=== PATIENT | male | born 1995 | race American Indian/Alaskan Native ===

== ENCOUNTER 2016-11-16 12:12 | Emergency (ER) | payer SELFPAY ==
[2016-11-16 13:07] VITALS: BP 110/67
--- NOTE | 2016-11-16 18:08 | Emergency Department Report ---
[facility] Chief Complaint: Eye Problems Stated Complaint: PINK EYE Time Seen by Provider: 11/16/16 17:57 Severity: moderate Symptoms: Yes Eye Itching (left eye), Yes Eye Redness (left eye), Yes Purulent Drainage (left eye), Yes Blurred Vision (left eye), No Preceding URI, No H/O Allergic Rhinitis, No Contact Lens Use, No Trauma, No Fever, No Headache Other History: 1-year-old male comes in for complaint of left eye redness and itchiness and pain. Patient reports that he has yellow to orange discharge coming from the left thigh. He reports pain is off and on but not constant. ED Review of Systems ROS: Stated complaint: PINK EYE Other details as noted in HPI Constitutional: no symptoms reported ENT: as per HPI ED Past Medical Hx - Past Medical History Hx Asthma: Yes Additional medical history: Back Problems - Surgical History Past Surgical History?: No - Social History Smoking Status: Current Every Day Smoker Substance Use Type: Alcohol - Medications Home Medications: Home Medications Medication Instructions Recorded Confirmed Last Taken Type Acetaminophen/Codeine [Tylenol #3] 1 tab PO Q6H PRN #15 tab 04/12/16 Unknown Rx Amoxicillin [Amoxicillin TAB] 875 mg PO BID #20 tablet 04/12/16 Unknown Rx Ibuprofen [Motrin 800 MG tab] 800 mg PO Q8HR PRN #21 tablet 04/12/16 Unknown Rx Promethazine [Phenergan TAB] 25 mg PO Q6HR PRN #12 tab 04/12/16 Unknown Rx predniSONE [Deltasone] 40 mg PO DAILY #10 tablet 04/12/16 Unknown Rx Erythromycin [Erythromycin Ophth 1 strip OS QID #01 tube 11/16/16 Unknown Rx Oint] [facility] Exam - Exam General: Vital signs noted. No distress. Alert and acting appropriately. Eye Exam: Left Injection, Left EOMI, Left Purulent Discharge HEENT: No Nasal Congestion, No Pharyngeal Erythema Lungs: Yes Clear Lung Sounds ED Course Vital Signs 11/16/16 13:05 Temperature 98.2 F Pulse Rate 70 Respiratory 20 Rate Blood Pressure 110/67 O2 Sat by Pulse 100 Oximetry Critical care attestation.: If time is entered above; I have spent that time in minutes in the direct care of this critically ill patient, excluding procedure time. ED Disposition Clinical Impression: Acute allergic conjunctivitis of left eye Disposition: DISCHARGED TO HOME OR SELFCARE Is pt being admited?: No Does the pt Need Aspirin: No Condition: Stable Instructions: Conjunctivitis (ED) Additional Instructions: Use the antibiotic in your eye for 10 days. Wash her hands prior to touching her eye and after you touch her eye. Prescriptions: Erythromycin [Erythromycin Ophth Oint] 1 strip OS QID #01 tube Referrals: PRIMARY CARE, [Primary Care Provider] - 3-5 Days FREEMAN RICHARDSON MD [Staff Physician] - 3-5 Days Forms: Work/School Release Form(ED)
== END 2016-11-16 18:35 | disposition home or self-care (01) ==
LOC: ED 12:12
DX: H10.12 Acute atopic conjunctivitis, left eye (principal); J45.909 Unspecified asthma, uncomplicated; F17.200 Nicotine dependence, unspecified, uncomplicated
CPT/HCPCS: 99282

== ENCOUNTER 2016-11-18 17:19 | Emergency (ER) | payer SELFPAY ==
[2016-11-18 18:14] VITALS: BP 114/73
== END 2016-11-18 21:50 | disposition left against medical advice (07) ==
LOC: ED 17:19
DX: H57.8 Other specified disorders of eye and adnexa (principal); Z53.21 Procedure and treatment not carried out due to patient leaving prior to being seen by health care provider

== ENCOUNTER 2017-05-27 06:42 | Inpatient (IN) | payer OTHER ==
[2017-05-27 07:15] LABS: Basophils % (Auto) 0.2 % (0.0-1.8); Eosinophils % (Auto) 0.2 % (0.0-4.3); Mean Corpuscular HGB Conc 33 % (32-34); Mean Corpuscular Hemoglobin 32 pg (28-32); Mean Corpuscular Volume 97 fl (84-94); Platelet Count 418 K/mm3 (140-440); Red Blood Count 4.65 M/mm3 (3.65-5.03); Red Cell Distribution Width 13.4 % (13.2-15.2); White Blood Count 14.5 K/mm3 (4.5-11.0)
[2017-05-27 07:39] LABS: Alanine Aminotransferase 15 units/L (7-56); Albumin 4.9 g/dL (3.9-5); Albumin/Globulin Ratio 1.4 %; Alkaline Phosphatase 102 units/L (35-129); Anion Gap 21 mmol/L; BUN/Creatinine Ratio 11.11; Blood Urea Nitrogen 10 mg/dL (9-20); Calcium 9.5 mg/dL (8.4-10.2); Carbon Dioxide 27 mmol/L (22-30); Glucose 141 mg/dL (75-100); Lipase 13 units/L (13-60); Potassium 3.6 mmol/L (3.6-5.0); Sodium 143 mmol/L (137-145); Total Protein 8.4 g/dL (6.3-8.2)
[2017-05-27 08:12] LABS: Bilirubin,Urine NEG (Negative); Blood,Urine NEG (Negative); Ketones,Urine NEG (Negative); Leukocyte Esterase,Urine NEG (Negative); Mucus,Urine 3+ /HPF; Nitrite,Urine NEG (Negative)
[2017-05-27] MEDS ORDERED: ZOFRAN IV ONE (09:36)
[2017-05-27] MEDS ORDERED: DILAUDID IV ONE ×2 (09:36→12:59)
[2017-05-27] MEDS ORDERED: NACL 0.9% 1000 ML 1,000 ML IV ONE (09:36)
--- NOTE | 2017-05-27 09:36 | Emergency Department Report ---
ED Abdominal Pain HPI - General Chief Complaint: Abdominal Pain Stated Complaint: ETOH Time Seen by Provider: 05/27/17 09:33 Source: patient Mode of arrival: Ambulatory Limitations: No Limitations - History of Present Illness Initial Comments: Patient complains of diffuse abdominal pain. He states that he does drink alcohol at triage but denied that to me when I asked him. He denies vomiting or nausea. He describes the abdominal pain is really quite diffuse and constant. He's had no fever or chills. He states he hasn't had any similar such episode. MD Complaint: abdominal pain -: Gradual Location: diffuse Radiation: none Migration to: no migration Severity: moderate, severe Quality: aching Consistency: constant Improves With: nothing Worsens With: nothing Context: other (question alcohol last night) Associated Symptoms: denies other symptoms - Related Data Previous Rx's Medication Instructions Recorded Last Taken Type Acetaminophen/Codeine [Tylenol #3] 1 tab PO Q6H PRN #15 tab 04/12/16 Unknown Rx Amoxicillin [Amoxicillin TAB] 875 mg PO BID #20 tablet 04/12/16 Unknown Rx Ibuprofen [Motrin 800 MG tab] 800 mg PO Q8HR PRN #21 tablet 04/12/16 Unknown Rx Promethazine [Phenergan TAB] 25 mg PO Q6HR PRN #12 tab 04/12/16 Unknown Rx predniSONE [Deltasone] 40 mg PO DAILY #10 tablet 04/12/16 Unknown Rx Erythromycin [Erythromycin Ophth 1 strip OS QID #01 tube 11/16/16 Unknown Rx Oint] Ciprofloxacin HCl [Ciprofloxacin 500 mg PO Q12HR #14 tab 05/27/17 Unknown Rx TAB] traMADol [Ultram] 50 mg PO Q6HR PRN #7 tablet 05/27/17 Unknown Rx Allergies Allergy/AdvReac Type Severity Reaction Status Date / Time shellfish derived Allergy Anaphylaxis Verified 10/18/15 17:32 ED Review of Systems ROS: Stated complaint: ETOH Other details as noted in HPI Constitutional: denies: chills, fever Eyes: denies: eye pain, eye discharge, vision change ENT: denies: ear pain, throat pain Respiratory: denies: cough, shortness of breath, wheezing Cardiovascular: denies: chest pain, palpitations Endocrine: no symptoms reported Gastrointestinal: abdominal pain. denies: nausea, diarrhea Genitourinary: denies: urgency, dysuria Musculoskeletal: denies: back pain, joint swelling, arthralgia Skin: denies: rash, lesions Neurological: denies: headache, weakness, paresthesias Psychiatric: denies: anxiety, depression Hematological/Lymphatic: denies: easy bleeding, easy bruising ED Past Medical Hx - Past Medical History Previous Medical History?: Yes Hx Asthma: Yes Additional medical history: Back Problems - Surgical History Past Surgical History?: No - Social History Smoking Status: Current Every Day Smoker Substance Use Type: Alcohol - Medications Home Medications: Home Medications Medication Instructions Recorded Confirmed Last Taken Type Acetaminophen/Codeine [Tylenol #3] 1 tab PO Q6H PRN #15 tab 04/12/16 Unknown Rx Amoxicillin [Amoxicillin TAB] 875 mg PO BID #20 tablet 04/12/16 Unknown Rx Ibuprofen [Motrin 800 MG tab] 800 mg PO Q8HR PRN #21 tablet 04/12/16 Unknown Rx Promethazine [Phenergan TAB] 25 mg PO Q6HR PRN #12 tab 04/12/16 Unknown Rx predniSONE [Deltasone] 40 mg PO DAILY #10 tablet 04/12/16 Unknown Rx Erythromycin [Erythromycin Ophth 1 strip OS QID #01 tube 11/16/16 Unknown Rx Oint] Ciprofloxacin HCl [Ciprofloxacin 500 mg PO Q12HR #14 tab 05/27/17 Unknown Rx TAB] traMADol [Ultram] 50 mg PO Q6HR PRN #7 tablet 05/27/17 Unknown Rx ED Physical Exam - General Limitations: No Limitations General appearance: alert, anxious - Head Head exam: Present: atraumatic, normocephalic - Eye Eye exam: Present: normal appearance - ENT ENT exam: Present: mucous membranes moist - Neck Neck exam: Present: normal inspection. Absent: tenderness, meningismus - Respiratory Respiratory exam: Present: normal lung sounds bilaterally. Absent: respiratory distress - Cardiovascular Cardiovascular Exam: Present: regular rate, normal rhythm. Absent: systolic murmur, diastolic murmur, rubs, gallop - GI/Abdominal GI/Abdominal exam: Present: soft, normal bowel sounds. Absent: distended, tenderness (no focal tenderness found), guarding, rebound, rigid - Rectal Rectal exam: Present: deferred - Extremities Exam Extremities exam: Present: normal inspection - Back Exam Back exam: Present: normal inspection - Neurological Exam Neurological exam: Present: alert, oriented X3, CN II-XII intact. Absent: motor sensory deficit - Psychiatric Psychiatric exam: Present: normal affect, normal mood - Skin Skin exam: Present: warm, dry, intact, normal color. Absent: rash ED Course Vital Signs 05/27/17 05/27/17 05/27/17 06:51 11:56 12:25 Temperature 98.4 F 98.7 F Pulse Rate 67 67 Respiratory 22 16 Rate Blood Pressure 128/83 Blood Pressure 126/82 [Right] O2 Sat by Pulse 100 Oximetry - Reevaluation(s) Reevaluation #1: Patient was bit writhing when he arrived. He was given Zosyn for coverage for possible intra-abdominal infection. He was given analgesia and antiemetics. On reexamination he states his abdominal pain is totally resolved. His abdomen was completely benign soft and nontender. He was informed as to the results of his CT examination showing diverticulosis. Radiologist saw no diverticulitis. Not withstanding this he does have a bit of a white blood cell count elevation and will be placed on Cipro and given analgesia. He is given strict return instructions and referred to a GI doctor and primary care setting. 05/27/17 12:29 ED Medical Decision Making - Lab Data Result diagrams: 05/27/17 07:04 05/27/17 07:04 Laboratory Results - last 24 hr 05/27/17 05/27/17 05/27/17 07:04 07:04 07:31 WBC 14.5 H RBC 4.65 Hgb 15.0 Hct 45.0 MCV 97 H MCH 32 MCHC 33 RDW 13.4 Plt Count 418 Lymph % (Auto) 9.7 L [place] % (Auto) 4.8 Eos % (Auto) 0.2 Baso % (Auto) 0.2 Lymph # 1.4 [place] # 0.7 Eos # 0.0 Baso # 0.0 Seg Neutrophils % 85.1 H Seg Neutrophils # 12.3 H Sodium 143 Potassium 3.6 Chloride 99.0 Carbon Dioxide 27 Anion Gap 21 BUN 10 Creatinine 0.9 Estimated GFR > 60 BUN/Creatinine Ratio 11.11 Glucose 141 H Calcium 9.5 Total Bilirubin 0.60 AST 20 ALT 15 Alkaline Phosphatase 102 Total Protein 8.4 H Albumin 4.9 Albumin/Globulin Ratio 1.4 Lipase 13 Urine Color Yellow Urine Turbidity Clear Urine pH 7.0 Ur Specific [place] 1.027 Urine Protein 30 mg/dl Urine Glucose (UA) Neg Urine Ketones Neg Urine Blood Neg Urine Nitrite Neg Urine Bilirubin Neg Urine Urobilinogen 2.0 Ur Leukocyte Esterase Neg Urine WBC (Auto) 2.0 Urine RBC (Auto) 7.0 U Epithel Cells (Auto) 1.0 Urine Mucus 3+ Laboratory Results - last 24 hr 05/27/17 05/27/17 05/27/17 07:04 07:04 07:04 WBC 14.5 H RBC 4.65 Hgb 15.0 Hct 45.0 MCV 97 H MCH 32 MCHC 33 RDW 13.4 Plt Count 418 Lymph % (Auto) 9.7 L [place] % (Auto) 4.8 Eos % (Auto) 0.2 Baso % (Auto) 0.2 Lymph # 1.4 [place] # 0.7 Eos # 0.0 Baso # 0.0 Seg Neutrophils % 85.1 H Seg Neutrophils # 12.3 H Sodium 143 Potassium 3.6 Chloride 99.0 Carbon Dioxide 27 Anion Gap 21 BUN 10 Creatinine 0.9 Estimated GFR > 60 BUN/Creatinine Ratio 11.11 Glucose 141 H Calcium 9.5 Total Bilirubin 0.60 AST 20 ALT 15 Alkaline Phosphatase 102 Total Protein 8.4 H Albumin 4.9 Albumin/Globulin Ratio 1.4 Lipase 13 Urine Color Urine Turbidity Urine pH Ur Specific [place] Urine Protein Urine Glucose (UA) Urine Ketones Urine Blood Urine Nitrite Urine Bilirubin Urine Urobilinogen Ur Leukocyte Esterase Urine WBC (Auto) Urine RBC (Auto) U Epithel Cells (Auto) Urine Mucus Urine Opiates Screen Urine Methadone Screen Ur Barbiturates Screen Ur Phencyclidine Scrn Ur Amphetamines Screen U Benzodiazepines Scrn Urine Cocaine Screen U Marijuana (THC) Screen Drugs of Abuse Note Plasma/Serum Alcohol < 0.01 05/27/17 05/27/17 07:31 07:31 WBC RBC Hgb Hct MCV MCH MCHC RDW Plt Count Lymph % (Auto) [place] % (Auto) Eos % (Auto) Baso % (Auto) Lymph # [place] # Eos # Baso # Seg Neutrophils % Seg Neutrophils # Sodium Potassium Chloride Carbon Dioxide Anion Gap BUN Creatinine Estimated GFR BUN/Creatinine Ratio Glucose Calcium Total Bilirubin AST ALT Alkaline Phosphatase Total Protein Albumin Albumin/Globulin Ratio Lipase Urine Color Yellow Urine Turbidity Clear Urine pH 7.0 Ur Specific [place] 1.027 Urine Protein 30 mg/dl Urine Glucose (UA) Neg Urine Ketones Neg Urine Blood Neg Urine Nitrite Neg Urine Bilirubin Neg Urine Urobilinogen 2.0 Ur Leukocyte Esterase Neg Urine WBC (Auto) 2.0 Urine RBC (Auto) 7.0 U Epithel Cells (Auto) 1.0 Urine Mucus 3+ Urine Opiates Screen Presumptive negative Urine Methadone Screen Presumptive negative Ur Barbiturates Screen Presumptive negative Ur Phencyclidine Scrn Presumptive negative Ur Amphetamines Screen Presumptive negative U Benzodiazepines Scrn Presumptive negative Urine Cocaine Screen Presumptive negative U Marijuana (THC) Screen Presumptive positive Drugs of Abuse Note Disclamer Plasma/Serum Alcohol - Radiology Data Radiology results: report reviewed (sigmoid diverticulosis is present without signs of inflammation) Critical care attestation.: If time is entered above; I have spent that time in minutes in the direct care of this critically ill patient, excluding procedure time. ED Disposition Clinical Impression: Sigmoid diverticulosis Abdominal pain Qualifiers: Abdominal location: generalized Qualified Code(s): R10.84 - Generalized abdominal pain Disposition: - TO HOME OR SELFCARE Is pt being admited?: No Does the pt Need Aspirin: No Condition: Stable Instructions: Diverticulosis (ED), Acute Abdominal Pain (ED) Additional Instructions: Return any recurrent significant abdominal pain. Clear fluids and advance as tolerated. Return any fever nausea vomiting. Follow-up with GI doctor. Dietary restrictions are recommended for people with diverticulosis see instructions. Prescriptions: Ciprofloxacin HCl [Ciprofloxacin TAB] 500 mg PO Q12HR #14 tab traMADol [Ultram] 50 mg PO Q6HR PRN #7 tablet PRN Reason: Pain Referrals: PRIMARY CARE [Primary Care Provider] - 3-5 Days [facility] [Provider Group] - 3-5 Days [facility] [Provider Group] - 2-3 Days Time of Disposition: 12:32
[2017-05-27] MEDS ORDERED: BENADRYL IV ONE (09:37)
[2017-05-27] MEDS ORDERED: ZOSYN/NS 4.5GM/100ML 4.5 GM/100 ML VIAL IV ONE (09:39)
[2017-05-27 09:54] LABS: Urine Drugs of Abuse Note Disclamer
--- NOTE | 2017-05-27 10:35 | Cat Scan Report ---
CT scan of abdomen and pelvis with IV contrast: History: Generalized abdominal pain. Findings: Normal lung bases. No pleural pericardial effusion. Normal liver spleen pancreas and gallbladder. Normal adrenals kidney parenchyma and bladder. No free intraperitoneal fluid or air. No evidence of adenopathy. Normal aorta. Normal appendix. No evidence of diverticulitis. Scattered diverticula in sigmoid. Impression: Diverticulosis sigmoid colon. Gaseous colon with stool in colon
--- NOTE | 2017-05-27 15:24 | History and Physical Report ---
History of Present Illness Date of examination: 05/27/17 Date of admission: 05/27/17 Chief complaint: LLQ pain 2 days History of present illness: [facility]: 21 y/o AAM comes in for LLQ pain of 2 days.Associated with Nausea.No Vomiting or BRBPBR.No SOB.No fever or chills.Pain localized to LLQ and about 8/ 10 - Past Medical History Previous Medical History?: Yes Hx Asthma: Yes Additional medical history: Back Problems - Surgical History Past Surgical History?: No - Social History Smoking Status: Current Every Day Smoker Substance Use Type: Alcohol - Medications Home Medications: Home Medications Medication Instructions Recorded Confirmed Last Taken Type Acetaminophen/Codeine [Tylenol #3] 1 tab PO Q6H PRN #15 tab 04/12/16 Unknown Rx Amoxicillin [Amoxicillin TAB] 875 mg PO BID #20 tablet 04/12/16 Unknown Rx Ibuprofen [Motrin 800 MG tab] 800 mg PO Q8HR PRN #21 tablet 04/12/16 Unknown Rx Promethazine [Phenergan TAB] 25 mg PO Q6HR PRN #12 tab 04/12/16 Unknown Rx predniSONE [Deltasone] 40 mg PO DAILY #10 tablet 04/12/16 Unknown Rx Erythromycin [Erythromycin Ophth 1 strip OS QID #01 tube 11/16/16 Unknown Rx Oint] Ciprofloxacin HCl [Ciprofloxacin 500 mg PO Q12HR #14 tab 05/27/17 Unknown Rx TAB] traMADol [Ultram] 50 mg PO Q6HR PRN #7 tablet 05/27/17 Unknown Rx Review of Systems Constitutional: denies: chills, fever Eyes: denies: eye pain, eye discharge, vision change ENT: denies: ear pain, throat pain Respiratory: denies: cough, shortness of breath, wheezing Cardiovascular: denies: chest pain, palpitations Endocrine: no symptoms reported Gastrointestinal: LLQ abdominal pain. denies: nausea, diarrhea Genitourinary: denies: urgency, dysuria Musculoskeletal: denies: back pain, joint swelling, arthralgia Skin: denies: rash, lesions Neurological: denies: headache, weakness, paresthesias Psychiatric: denies: anxiety, depression Hematological/Lymphatic: denies: easy bleeding, easy bruising Past History Past Medical History: No medical history Medications and Allergies Allergies Allergy/AdvReac Type Severity Reaction Status Date / Time shellfish derived Allergy Anaphylaxis Verified 12/04/15 17:32 Home Medications Medication Instructions Recorded Confirmed Last Taken Type Ciprofloxacin HCl [Ciprofloxacin 500 mg PO Q12HR #14 tab 05/27/17 Unknown Rx TAB] traMADol [Ultram] 50 mg PO Q6HR PRN #7 tablet 05/27/17 Unknown Rx Review of Systems All systems: negative Exam - Physical Exam Narrative exam: IN discomfort - Constitutional Vitals: Temp Pulse Resp BP Pulse Ox 98.7 F 67 16 126/82 100 05/27/17 12:25 05/27/17 11:56 05/27/17 11:56 05/27/17 11:56 05/27/17 06:51 General appearance: Present: no acute distress, well-nourished - EENT Eyes: Present: PERRL ENT: hearing intact, clear oral mucosa - Neck Neck: Present: supple, normal ROM - Respiratory Respiratory effort: normal Respiratory: bilateral: CTA - Cardiovascular Heart rate: 76 Rhythm: regular Heart Sounds: Present: S1 & S2. Absent: rub, click - Extremities Extremities: pulses symmetrical, No edema Peripheral Pulses: within normal limits - Abdominal General gastrointestinal: Present: tender (LLQ associated with some guarding), non-distended, normal bowel sounds Male genitourinary: Present: normal - Integumentary Integumentary: Present: clear, warm, dry - Musculoskeletal Musculoskeletal: gait normal, strength equal bilaterally - Psychiatric Psychiatric: appropriate mood/affect, intact judgment & insight - Neurologic Neurologic: CNII-XII intact, moves all extremities Results - Labs CBC & Chem 7: 05/27/17 07:04 05/27/17 07:04 Labs: Laboratory Last Values WBC 14.5 K/mm3 (4.5-11.0) H 05/27/17 07:04 RBC 4.65 M/mm3 (3.65-5.03) 05/27/17 07:04 Hgb 15.0 gm/dl (11.8-15.2) 05/27/17 07:04 Hct 45.0 % (35.5-45.6) 05/27/17 07:04 MCV 97 fl (84-94) H 05/27/17 07:04 MCH 32 pg (28-32) 05/27/17 07:04 MCHC 33 % (32-34) 05/27/17 07:04 RDW 13.4 % (13.2-15.2) 05/27/17 07:04 Plt Count 418 K/mm3 (140-440) 05/27/17 07:04 Lymph % (Auto) 9.7 % (13.4-35.0) L 05/27/17 07:04 [place] % (Auto) 4.8 % (0.0-7.3) 05/27/17 07:04 Eos % (Auto) 0.2 % (0.0-4.3) 05/27/17 07:04 Baso % (Auto) 0.2 % (0.0-1.8) 05/27/17 07:04 Lymph # 1.4 K/mm3 (1.2-5.4) 05/27/17 07:04 [place] # 0.7 K/mm3 (0.0-0.8) 05/27/17 07:04 Eos # 0.0 K/mm3 (0.0-0.4) 05/27/17 07:04 Baso # 0.0 K/mm3 (0.0-0.1) 05/27/17 07:04 Seg Neutrophils % 85.1 % (40.0-70.0) H 05/27/17 07:04 Seg Neutrophils # 12.3 K/mm3 (1.8-7.7) H 05/27/17 07:04 Sodium 143 mmol/L (137-145) 05/27/17 07:04 Potassium 3.6 mmol/L (3.6-5.0) 05/27/17 07:04 Chloride 99.0 mmol/L (98-107) 05/27/17 07:04 Carbon Dioxide 27 mmol/L (22-30) 05/27/17 07:04 Anion Gap 21 mmol/L 05/27/17 07:04 BUN 10 mg/dL (9-20) 05/27/17 07:04 Creatinine 0.9 mg/dL (0.8-1.5) 05/27/17 07:04 Estimated GFR > 60 ml/min 05/27/17 07:04 BUN/Creatinine Ratio 11.11 % 05/27/17 07:04 Glucose 141 mg/dL (75-100) H 05/27/17 07:04 Calcium 9.5 mg/dL (8.4-10.2) 05/27/17 07:04 Total Bilirubin 0.60 mg/dL (0.1-1.2) 05/27/17 07:04 AST 20 units/L (5-40) 05/27/17 07:04 ALT 15 units/L (7-56) 05/27/17 07:04 Alkaline Phosphatase 102 units/L (35-129) 05/27/17 07:04 Total Protein 8.4 g/dL (6.3-8.2) H 05/27/17 07:04 Albumin 4.9 g/dL (3.9-5) 05/27/17 07:04 Albumin/Globulin Ratio 1.4 % 05/27/17 07:04 Lipase 13 units/L (13-60) 05/27/17 07:04 Urine Color Yellow (Yellow) 05/27/17 07:31 Urine Turbidity Clear (Clear) 05/27/17 07:31 Urine pH 7.0 (5.0-7.0) 05/27/17 07:31 Ur Specific [place] 1.027 (1.003-1.030) 05/27/17 07:31 Urine Protein 30 mg/dl mg/dL (Negative) 05/27/17 07:31 Urine Glucose (UA) Neg mg/dL (Negative) 05/27/17 07:31 Urine Ketones Neg mg/dL (Negative) 05/27/17 07:31 Urine Blood Neg (Negative) 05/27/17 07:31 Urine Nitrite Neg (Negative) 05/27/17 07:31 Urine Bilirubin Neg (Negative) 05/27/17 07:31 Urine Urobilinogen 2.0 mg/dL (<2.0) 05/27/17 07:31 Ur Leukocyte Esterase Neg (Negative) 05/27/17 07:31 Urine WBC (Auto) 2.0 /HPF (0.0-6.0) 05/27/17 07:31 Urine RBC (Auto) 7.0 /HPF (0.0-6.0) 05/27/17 07:31 U Epithel Cells (Auto) 1.0 /HPF (0-13.0) 05/27/17 07:31 Urine Mucus 3+ /HPF 05/27/17 07:31 Urine Opiates Screen Presumptive negative 05/27/17 07:31 Urine Methadone Screen Presumptive negative 05/27/17 07:31 Ur Barbiturates Screen Presumptive negative 05/27/17 07:31 Ur Phencyclidine Scrn Presumptive negative 05/27/17 07:31 Ur Amphetamines Screen Presumptive negative 05/27/17 07:31 U Benzodiazepines Scrn Presumptive negative 05/27/17 07:31 Urine Cocaine Screen Presumptive negative 05/27/17 07:31 U Marijuana (THC) Screen Presumptive positive 05/27/17 07:31 Drugs of Abuse Note Disclamer 05/27/17 07:31 Plasma/Serum Alcohol < 0.01 gm% (0-0.07) 05/27/17 07:04 - Imaging and Cardiology CT scan - abdomen: report reviewed (Sigmoid diverticula.No Diverticulitis mentioned) Assessment and Plan Advance Directives: Yes VTE prophylaxis?: Chemical Plan of care discussed with patient/family: Yes - Patient Problems (1) Acute diverticulitis Current Visit: Yes Status: Acute Plan to address problem: Patient started on Zosyn for broad spectrum coverage.Also pain control.GI consult if necessary (2) DVT prophylaxis Current Visit: Yes Status: Acute Plan to address problem: on lovenox
[2017-05-27] MEDS ORDERED: DULCOLAX PR PRN (15:25)
[2017-05-27] MEDS ORDERED: TYLENOL PO PRN (15:25)
[2017-05-27] MEDS ORDERED: ZOFRAN IV PRN (15:25)
[2017-05-27] MEDS ORDERED: MILK OF MAGNESIA PO PRN (15:25)
--- NOTE | 2017-05-27 15:33 | Admit Criteria Form ---
Admission Criteria Documentation: ABDOMINAL PAIN Clinical Indications for Admission to Inpatient Care (Place 'X' for any and all applicable criteria): Admission is indicated for ANY ONE of the following(1)(2)(3)(4)(5): [ X]I. Inpatient admission required rather than observation care (Also use Abdominal Pain: Observation Care, as appropriate) because of ANY ONE of the following: [ ]a) Severe pain requiring acute inpatient management [ ]b) Identification of etiology/finding that requires inpatient care (eg, aortic dissection, free air) [ ]c) Absent bowel sounds with complete ileus(6) [ ]d) Suspected toxic megacolon [ ]e) Severe electrolyte abnormalities requiring inpatient care [ ]f) High fever or infection requiring inpatient admission as indicated by ANY ONE of following(7)(8): [ ] i) Appropriate outpatient or observational care antimicrobial treatment unavailable, not effective, or not feasible [ ] ii) Documented bacteremia [ ] iii) Temperature > 104.9 degrees F (oral) [ ] iv) T >103.1 F (oral) or < 96.8 F(rectal) that does not respond to all emergency treatment measures [ ]g) Signs of intestinal obstruction [B] [ ]h) Hemodynamic instability [ ]i) IV fluid to replace significant ongoing losses (greater than 3 L/m2 per day) (12)(13) [ ]j) Percutaneous or open drainage (eg, abscess, biliary tract ) procedures [ ]k) Parenteral nutrition regimen that must be implemented on inpatient basis [ X]l) Other condition,treatment or monitoring requiring inpatient admission. [ ]II. Peritoneal signs present [ ]III. Surgery needed that cannot be performed on an ambulatory basis. [ ]IV. Evaluation requires patient to not eat or drink for extended period ( eg, more than 24 hours). [ ]V. Contraindications and/or Inappropriate clinical situations for Observational Care in patients with abdominal pain, when ANY ONE of the following is required: [ ]a) Thorough evaluation is required to prevent catastrophic events due to delays in diagnosing (e.g.Mesenteric ischemia) 1,3 [ ]b) Patient with severe pathology or with chronic symptoms unlikely to improve in the ED stay (3) [ ]. General contraindications and/or Inappropriate clinical situations for Observational Care in patients with abdominal pain, when ANY ONE of the following is required: [ ]a) Prediction of prolongation of LOS based on ANY ONE of the following may be considered as a contraindication for observational care 2, 3, 4, 5, 6, 7, 8, 9, 10, 11 [ ]i) Age > 65 yrs. [ ]ii) Patient arriving by ambulance [ ]iii) Patient with high acuity [ ]iv) Patient requiring vital sign monitoring [ ]v) Patient on IV medication [ ]b) Systolic blood pressures 180mmHg 3,12 [ ]c) Patient with altered mental status including delirium and other alteration of consciousness, (3) [ ]d) Patient whose discharge disposition will be to a correction home or rehabilitation home should not be managed in Emergency Department Observation Unit. CMS rule requires 3 days hospital stay before such placement.3,13 [ ]e) Patient with failure to thrive due to broad array of etiologies 3,16,17 [ ]f) Inability to ambulate 3,14 Extended stay beyond goal length of stay may be needed for(2)(3): [ ]a) Persistent abdominal pain with suspected intra-abdominal process [ ]b) Diagnosed condition requiring continued stay (e.g., pancreatitis, complicated diverticulitis) [ ]c) Surgery (e.g., colectomy) The original [facility] content created by [employer] has been revised. The portions of the content which have been revised are identified through the use of italic text or in bold, and [facility] has neither reviewed nor approved the modified material.All other unmodified content is copyright [facility] Please see references footnoted in the original [facility] edition 2016 Admission Criteria Met: Yes
[2017-05-27] MEDS: ZOSYN/NS 4.5GM/100ML 4.5 GM/100 ML VIAL IV SCH ×2 (15:40→21:24)
[2017-05-27] MEDS: D5NS 1,000 ML IV SCH (17:26)
[2017-05-27] MEDS: DILAUDID IV PRN (22:24)
[2017-05-28] MEDS: D5NS 1,000 ML IV SCH ×3 (05:02→23:41)
[2017-05-28] MEDS: ZOSYN/NS 4.5GM/100ML 4.5 GM/100 ML VIAL IV SCH ×3 (06:13→22:00)
[2017-05-28 07:30] LABS: Basophils % (Auto) 0.6 % (0.0-1.8); Eosinophils % (Auto) 1.9 % (0.0-4.3); Hematocrit 40.8 % (35.5-45.6); Hemoglobin 13.5 gm/dl (11.8-15.2); Mean Corpuscular HGB Conc 33 % (32-34); Mean Corpuscular Hemoglobin 32 pg (28-32); Mean Corpuscular Volume 96 fl (84-94); Platelet Count 331 K/mm3 (140-440); Red Blood Count 4.24 M/mm3 (3.65-5.03); Red Cell Distribution Width 13.1 % (13.2-15.2); White Blood Count 11.8 K/mm3 (4.5-11.0)
[2017-05-28 07:45] LABS: Alanine Aminotransferase 11 units/L (7-56); Albumin/Globulin Ratio 1.4 %; Alkaline Phosphatase 84 units/L (35-129); Anion Gap 16 mmol/L; Blood Urea Nitrogen 11 mg/dL (9-20); Calcium 9.1 mg/dL (8.4-10.2); Carbon Dioxide 27 mmol/L (22-30); Glucose 88 mg/dL (75-100); Potassium 3.2 mmol/L (3.6-5.0); Sodium 140 mmol/L (137-145); Total Protein 6.9 g/dL (6.3-8.2)
[2017-05-28] MEDS ORDERED: K-DUR PO ONE (08:30)
--- NOTE | 2017-05-28 18:48 | Progress Note ---
Assessment and Plan Assessment and plan: --Acute diverticulosis with intractable nausea vomiting and abdominal pain CT negative for diverticulitis however patient has lower abdominal tenderness and leukocytosis Continue antibiotics for 5-7 days Patient is nothing by mouth status on IV fluids, antibiotics and supportive care is Start clear liquids and advance as tolerated --Leukocytosis; secondary to acute diverticulosis, trending down --Hypokalemia; replenish per protocol and monitor levels --Intractable nausea and vomiting; Antiemetics, IV fluids, supportive care --Ongoing tobacco use; Counseling done patient strongly advised to quit tobacco use Advised nicotine patch --Alcohol abuse Counseling done patient strongly advised to quit alcohol intake, closely monitor for any withdrawal symptoms --DVT prophylaxis with Lovenox Closely monitor the patient and adjust management as needed Possible discharge tomorrow if stable History Interval history: Patient seen and evaluated, medical records reviewed No new events reported by the nursing staff Admitted with diverticulosis/abdominal pain/intractable nausea vomiting On IV fluids and IV antibiotics Patient feels slightly better anxious to eat, no new complaints alert awake oriented 3 not in acute distress Hospitalist Physical - Constitutional Vitals: Temp Pulse Resp BP Pulse Ox 98.8 F 58 L 18 108/58 100 05/28/17 15:47 05/28/17 15:47 05/28/17 15:47 05/28/17 15:47 05/28/17 08:00 General appearance: Present: no acute distress, well-nourished - EENT Eyes: Present: PERRL, EOM intact - Neck Neck: Present: supple, normal ROM - Respiratory Respiratory effort: normal Respiratory: negative: rales, rhonchi, wheezing - Cardiovascular Rhythm: regular Heart Sounds: Present: S1 & S2 - Extremities Extremities: no ischemia, No edema Peripheral Pulses: within normal limits - Abdominal General gastrointestinal: soft, non-tender, non-distended, normal bowel sounds - Integumentary Integumentary: Present: clear, warm - Psychiatric Psychiatric: appropriate mood/affect, cooperative - Neurologic Neurologic: CNII-XII intact, moves all extremities Results - Labs CBC & Chem 7: 05/28/17 06:38 05/28/17 06:38 Labs: Laboratory Last Values WBC 11.8 K/mm3 (4.5-11.0) H 05/28/17 06:38 RBC 4.24 M/mm3 (3.65-5.03) 05/28/17 06:38 Hgb 13.5 gm/dl (11.8-15.2) 05/28/17 06:38 Hct 40.8 % (35.5-45.6) 05/28/17 06:38 MCV 96 fl (84-94) H 05/28/17 06:38 MCH 32 pg (28-32) 05/28/17 06:38 MCHC 33 % (32-34) 05/28/17 06:38 RDW 13.1 % (13.2-15.2) L 05/28/17 06:38 Plt Count 331 K/mm3 (140-440) 05/28/17 06:38 Lymph % (Auto) 22.7 % (13.4-35.0) 05/28/17 06:38 Brown % (Auto) 9.9 % (0.0-7.3) H 05/28/17 06:38 Eos % (Auto) 1.9 % (0.0-4.3) 05/28/17 06:38 Baso % (Auto) 0.6 % (0.0-1.8) 05/28/17 06:38 Lymph # 2.7 K/mm3 (1.2-5.4) 05/28/17 06:38 Brown # 1.2 K/mm3 (0.0-0.8) H 05/28/17 06:38 Eos # 0.2 K/mm3 (0.0-0.4) 05/28/17 06:38 Baso # 0.1 K/mm3 (0.0-0.1) 05/28/17 06:38 Seg Neutrophils % 64.9 % (40.0-70.0) 05/28/17 06:38 Seg Neutrophils # 7.7 K/mm3 (1.8-7.7) 05/28/17 06:38 Sodium 140 mmol/L (137-145) 05/28/17 06:38 Potassium 3.2 mmol/L (3.6-5.0) L 05/28/17 06:38 Chloride 100.0 mmol/L (98-107) 05/28/17 06:38 Carbon Dioxide 27 mmol/L (22-30) 05/28/17 06:38 Anion Gap 16 mmol/L 05/28/17 06:38 BUN 11 mg/dL (9-20) 05/28/17 06:38 Creatinine 1.0 mg/dL (0.8-1.5) 05/28/17 06:38 Estimated GFR > 60 ml/min 05/28/17 06:38 BUN/Creatinine Ratio 11.00 % 05/28/17 06:38 Glucose 88 mg/dL (75-100) 05/28/17 06:38 Calcium 9.1 mg/dL (8.4-10.2) 05/28/17 06:38 Total Bilirubin 0.90 mg/dL (0.1-1.2) 05/28/17 06:38 AST 16 units/L (5-40) 05/28/17 06:38 ALT 11 units/L (7-56) 05/28/17 06:38 Alkaline Phosphatase 84 units/L (35-129) 05/28/17 06:38 Total Protein 6.9 g/dL (6.3-8.2) 05/28/17 06:38 Albumin 4.0 g/dL (3.9-5) 05/28/17 06:38 Albumin/Globulin Ratio 1.4 % 05/28/17 06:38 Lipase 13 units/L (13-60) 05/27/17 07:04 Urine Color Yellow (Yellow) 05/27/17 07:31 Urine Turbidity Clear (Clear) 05/27/17 07:31 Urine pH 7.0 (5.0-7.0) 05/27/17 07:31 Ur Specific [place] 1.027 (1.003-1.030) 05/27/17 07:31 Urine Protein 30 mg/dl mg/dL (Negative) 05/27/17 07:31 Urine Glucose (UA) Neg mg/dL (Negative) 05/27/17 07:31 Urine Ketones Neg mg/dL (Negative) 05/27/17 07:31 Urine Blood Neg (Negative) 05/27/17 07:31 Urine Nitrite Neg (Negative) 05/27/17 07:31 Urine Bilirubin Neg (Negative) 05/27/17 07:31 Urine Urobilinogen 2.0 mg/dL (<2.0) 05/27/17 07:31 Ur Leukocyte Esterase Neg (Negative) 05/27/17 07:31 Urine WBC (Auto) 2.0 /HPF (0.0-6.0) 05/27/17 07:31 Urine RBC (Auto) 7.0 /HPF (0.0-6.0) 05/27/17 07:31 U Epithel Cells (Auto) 1.0 /HPF (0-13.0) 05/27/17 07:31 Urine Mucus 3+ /HPF 05/27/17 07:31 Urine Opiates Screen Presumptive negative 05/27/17 07:31 Urine Methadone Screen Presumptive negative 05/27/17 07:31 Ur Barbiturates Screen Presumptive negative 05/27/17 07:31 Ur Phencyclidine Scrn Presumptive negative 05/27/17 07:31 Ur Amphetamines Screen Presumptive negative 05/27/17 07:31 U Benzodiazepines Scrn Presumptive negative 05/27/17 07:31 Urine Cocaine Screen Presumptive negative 05/27/17 07:31 U Marijuana (THC) Screen Presumptive positive 05/27/17 07:31 Drugs of Abuse Note Disclamer 05/27/17 07:31 Plasma/Serum Alcohol < 0.01 gm% (0-0.07) 05/27/17 07:04
[2017-05-28] MEDS: DILAUDID IV PRN (20:38)
[2017-05-29] MEDS: ZOSYN/NS 4.5GM/100ML 4.5 GM/100 ML VIAL IV SCH (06:11)
--- NOTE | 2017-05-29 07:43 | Discharge Summary ---
Providers - Providers Date of Admission: 05/27/17 15:23 Date of discharge: 05/29/17 Attending physician: ZHANE LEBRON Primary care physician: [employer] Hospitalization Reason for admission: lower quadrant pain with nausea 2 days duration Condition: Stable Pertinent studies: CT abdomen and pelvis with contrast; Diverticulosis sigmoid colon, no diverticulitis, gaseous colon with stool in colon Hospital course: 21-year-old -[place] male patient with significant past medical history of bronchial asthma was admitted through emergency room with left lower quadrant pain of 2 days' duration associated with nausea , Patient was initially evaluated, CT abdomen and pelvis revealed diverticulosis without diverticulitis, however patient had slight elevation of WBC, and persistent left lower quadrant pain with nausea, The patient was admitted to the hospital placed nothing by mouth, managed with IV antibiotics and IV fluids and supportive care. Diet was started with clear liquids and advance as tolerated, Symptoms significantly improved, Today he is comfortable in bed no new complaints, abdominal pain completely resolved, vital signs are stable, [id number] evaluation physical examination done by me prior to discharge is unremarkable, Patient is hemodynamically and clinically stable at the time of discharge We'll discharge the oral metronidazole and pain medication, on soft diet and advance as tolerated Follow-up with primary care physician as well as GI for further evaluation and management Reason cessation counseling done advised to quit tobacco use, also advised to quit recreational drug and alcohol use, patient verbalized understanding Final diagnosis: Acute diverticulosis with left lower quadrant pain Leukocytosis Hypokalemia Intractable nausea and vomiting Ongoing tobacco use Ongoing alcohol use Disposition: DC-01 TO HOME OR SELFCARE Time spent for discharge: 31 min Core Measure Documentation - Palliative Care Palliative Care/ Comfort Measures: Not Applicable - Core Measures Any of the following diagnoses?: none Exam - Constitutional Vitals: Temp Pulse Resp BP Pulse Ox 99.0 F 68 14 121/71 100 05/28/17 23:00 05/28/17 23:00 05/28/17 23:00 05/28/17 23:00 05/28/17 23:00 General appearance: Present: no acute distress, well-nourished - EENT Eyes: Present: PERRL, EOM intact - Neck Neck: Present: supple, enlarged thyroid - Respiratory Respiratory effort: normal Respiratory: negative: rales, rhonchi, wheezing - Cardiovascular Rhythm: regular Heart Sounds: Present: S1 & S2 - Extremities Extremities: no ischemia, pulses intact, pulses symmetrical Peripheral Pulses: within normal limits - Abdominal General gastrointestinal: Present: soft, non-tender, non-distended, normal bowel sounds - Integumentary Integumentary: Present: clear, warm - Musculoskeletal Musculoskeletal: strength equal bilaterally, generalized weakness - Psychiatric Psychiatric: appropriate mood/affect, cooperative - Neurologic Neurologic: CNII-XII intact, moves all extremities Plan Activity: no restrictions Diet: other (soft diet, advance as tolerated) Special Instructions: smoking cessation, other (advised to quit alcohol intake) Follow up with: [facility] [Provider Group] - 3-5 Days [facility] [place] [Provider Group] - 2-3 Days [facility], [Primary Care Provider] - 3-5 Days Prescriptions: Ciprofloxacin HCl [Ciprofloxacin TAB] 500 mg PO Q12HR #14 tab Dicyclomine [Bentyl] 10 mg PO TID PRN #15 capsule PRN Reason: Pain metroNIDAZOLE [Flagyl] 500 mg PO Q8HR #21 tablet traMADol [Ultram] 50 mg PO Q6HR PRN #7 tablet PRN Reason: Pain
[2017-05-29 09:05] VITALS: BP 118/64
== END 2017-05-29 12:00 | disposition home or self-care (01) | DRG 392 ==
LOC: ED 06:42 → 3A 15:23
PROVIDERS: ADMIT Internal Medicine; ATTEND Internal Medicine
DX: K57.90 Diverticulosis of intestine, part unspecified, without perforation or abscess without bleeding (principal); J45.909 Unspecified asthma, uncomplicated; R10.32 Left lower quadrant pain; F17.210 Nicotine dependence, cigarettes, uncomplicated; D72.829 Elevated white blood cell count, unspecified; E87.6 Hypokalemia; F10.10 Alcohol abuse, uncomplicated; Z71.6 Tobacco abuse counseling; Z71.41 Alcohol abuse counseling and surveillance of alcoholic; Z91.013 Allergy to seafood
CPT/HCPCS: 36415; 74177; 80053; 80307; 80320; 81001; 83690; 85025; 96374; 96375; 96376; 99285; 99406; G0480; J1170; J1200; J2405; J2543; J7030; J7042; Q9967